=== PATIENT | female | born 1985 | race Caucasian/White ===

== ENCOUNTER → 2017-10-16 14:51 | Outpatient (CLI) | payer BC, SELFPAY ==
[2017-10-17 12:01] LABS: Strep Grp B PCR NEG for Grp B Strep
== END ==
PROVIDERS: Family Provider Specialist; PCP Specialist; Visit Provider Specialist
DX: Z34.83 Encounter for supervision of other normal pregnancy, third trimester (principal); Z3A.36 36 weeks gestation of pregnancy
CPT/HCPCS: 87653

== ENCOUNTER 2017-11-02 22:29 | Inpatient (IN) | payer BC, SELFPAY ==
[2017-11-03] MEDS: LACTATED RINGERS 1,000 ML 1000 ML IV (02:45)
[2017-11-03 03:29] LABS: Add Manual Diff / Slide Review NO; Basophils Percent Auto 0.5 % (0-2); Eosinophils Percent Auto 0.6 % (2-4); Hematocrit 37.4 % (36-46); Hemoglobin 12.8 g/dL (12.0-16.0); Lymphocytes Percent Auto 21.8 % (25-40); Mean Corpuscular HGB Conc 34.3 % (30-36); Mean Corpuscular Hemoglobin 32.6 PG (26-34); Mean Corpuscular Volume 95.2 fL (80-100); Monocytes Percent Auto 6.2 % (3-14); Neutrophils Absolute Auto 7900 /uL (3000-5900); Neutrophils Percent Auto 70.9 % (50-75); Platelet Count 201 X10^3/uL (150-400); Red Blood Cell Count 3.93 X10^6/uL (4.0-5.2); Red Cell Distribution Width 12.7 % (11.6-14.8); White Blood Cell Count 11.1 X10^3/uL (4.5-11.0)
[2017-11-03] MEDS: OXYTOCIN 10 UNIT/ML VIAL IM (03:30)
--- NOTE | 2017-11-03 03:41 | PM.OBHP.1 ---
OB HPI Date/Time Date of admission: 11/03/17 Date Patient Seen: 11/03/17 Time Patient Seen: 03:42 History of Present Illness Chief complaint: EVAL OF LABOR : 5 Para: 2 Estimated Date of Delivery: 11/10/17 Estimated Gestational Age (weeks): 38 Narrative: Mariola Lopez is a 32 year old female who arrived on Labor and delivery in active labor. History of Present care: good care Dating criteria: LMP confirmed by 1st trimester US Ultrasounds: normal mid trimester US Obstetrical complications: none Medical complications: none Preadmission Labs Blood type: A (+) positive -: Antibody screen: negative, GBS status: negative, HBsAG: negative, HIV: negative, HSV 1: negative, HSV 2: negative and RPR/VDLR: negative -: Chlamydia screen: not detected and Gonorrhea screen: not detected -: Rubella: immune and Varicella: immune PAP: Normal Quad screen: Normal 1 hr GTT: 110 Prior (ies) History: 08/29/2007 vaginal delivery male 7 lb 5 oz 03/15/2010 vaginal delivery male infant 7 lb 1 0z Evaluation Evaluation Baseline heart rate: 140 Variability: Moderate (11-25) monitor accelerations: Present monitor decelerations: Absent Contraction Frequency (minutes): 4 Uterine Contraction Intensity: Moderate Category of Tracing: I Cervical dilation (cm): 3 Cervical effacement (%): 75 station: -2 Laboratory results: Laboratory Tests 11/03/17 00:30 WBC 11.1 H RBC 3.93 L Hgb 12.8 Hct 37.4 MCV 95.2 MCH 32.6 MCHC 34.3 RDW 12.7 Plt Count 201 Neut % (Auto) 70.9 Lymph % (Auto) 21.8 L [place] % (Auto) 6.2 Eos % (Auto) 0.6 L Baso % (Auto) 0.5 Neut # (Auto) 7900 H [facility] Medical History Migraines (Chronic) Surgical History History of carpal tunnel surgery (Chronic) Meds Allergies Allergy/AdvReac Type Severity Reaction Status Date / Time vicodan Allergy Unknown Uncoded 07/23/17 12:46 Review of Systems Review of Systems All systems reviewed & are unremarkable except as noted in HPI and below Exam Vital Signs (past 8 hours): Blood pressure 117/70, pulse 105, temperature 97.7 Narrative Exam Narrative: Patient had does had precipitous delivery in bed when I arrived. Normal external genitalia with intact perineum. Objective Labs Result Diagrams: 11/03/17 00:30 Labs: Laboratory Results - last 24 hr 11/03/17 00:30 WBC 11.1 H RBC 3.93 L Hgb 12.8 Hct 37.4 MCV 95.2 MCH 32.6 MCHC 34.3 RDW 12.7 Plt Count 201 Neut % (Auto) 70.9 Lymph % (Auto) 21.8 L [place] % (Auto) 6.2 Eos % (Auto) 0.6 L Baso % (Auto) 0.5 Neut # (Auto) 7900 H Assessment and Plan (1) Vaginal delivery: Current visit: Yes Status: Acute Plan: Plan: Routine care after precipitous vaginal delivery.
--- NOTE | 2017-11-03 03:56 | PM.OBPRVD ---
Delivery date: 11/03/17 Intrapartal events: Precipitous Labor < 3 hours Delivery monitor: external FHT and external uterine Route of delivery: Laceration description: None Estimated blood loss (mL): 100 Anesthesia type: None Narrative: Patient arrived on Labor and delivery in early labor. heart tones were reassuring. She progressed rapidly and delivered in bed prior to my arrival. The nurse it just take in the cord bloods. The placenta delivered spontaneously, intact, 3 vessels. There were no cervical, vaginal, perineal tears. Viable male was delivered with Apgars of 8 and 9. Weight is pending. Both infant and mother doing well. Plan for aftercare: Routine care
[2017-11-03] MEDS: IBUPROFEN 600 MG TABLET PO ×3 (05:20→18:40)
[2017-11-03 06:07] VITALS: BP 117/70
[2017-11-03] MEDS: DOCUSATE 250 MG CAPSULE PO (08:10)
[2017-11-03] MEDS: PRENATAL VIT,CALC/IRON/FOLIC 1 TABLET 1 TAB PO (08:10)
[2017-11-03] MEDS: ACETAMINOPHEN 325 MG TABLET 650 MG PO (10:32)
[2017-11-04] MEDS: IBUPROFEN 600 MG TABLET PO ×2 (01:22→06:54)
[2017-11-04 06:17] LABS: Add Manual Diff / Slide Review NO; Basophils Percent Auto 0.4 % (0-2); Eosinophils Percent Auto 1.1 % (2-4); Hematocrit 33.9 % (36-46); Hemoglobin 11.8 g/dL (12.0-16.0); Mean Corpuscular HGB Conc 34.7 % (30-36); Mean Corpuscular Hemoglobin 32.9 PG (26-34); Monocytes Percent Auto 7.7 % (3-14); Neutrophils Absolute Auto 6900 /uL (3000-5900); Neutrophils Percent Auto 67.8 % (50-75); Platelet Count 190 X10^3/uL (150-400); Red Blood Cell Count 3.57 X10^6/uL (4.0-5.2); Red Cell Distribution Width 12.8 % (11.6-14.8); White Blood Cell Count 10.1 X10^3/uL (4.5-11.0)
[2017-11-04] MEDS: TET,DIPH,PERTUSS(ACELL),VAC/PF 0.5 ML SYRINGE IM (08:33)
[2017-11-04] MEDS: DOCUSATE 250 MG CAPSULE PO (08:33)
[2017-11-04] MEDS: PRENATAL VIT,CALC/IRON/FOLIC 1 TABLET 1 TAB PO (08:33)
--- NOTE | 2017-11-04 09:13 | PM.OBDS.1 ---
Discharge Providers Date of admission: 11/03/17 05:21 Primary care physician: Sheila Brown MD Consults: 11/03/17 05:21 Consult to Retail Support Specialist Routine Comment: Discharge provider: Sheila Brown MD Discharge Date: 11/04/17 Summary Date Patient Seen: 11/04/17 Time Patient Seen: 09:17 Peripartum Data Infant Delivery Method: Natural Vaginal Laceration description: None Procedures: Vaginal delivery complications: none 1: Gender: Male Disposition of : home Discharge Diagnosis (1) Vaginal delivery: Status: Acute Status at Discharge Functional status at discharge: independent ambulation Overall status at discharge: patient is progressing back to baseline Time Spent with Patient Total time spent providing and/or coordinating discharge services: Less than 30 minutes Objective Labs Result Diagrams: 11/04/17 05:38 Labs: Laboratory Results - last 24 hr 11/04/17 05:38 WBC 10.1 RBC 3.57 L Hgb 11.8 L Hct 33.9 L MCV 95.0 MCH 32.9 MCHC 34.7 RDW 12.8 Plt Count 190 Neut % (Auto) 67.8 Lymph % (Auto) 23.0 L [place] % (Auto) 7.7 Eos % (Auto) 1.1 L Baso % (Auto) 0.4 Neut # (Auto) 6900 H Discharge Plan Discharge Plan Patient Disposition: Home, Self-Care Discharge Med Rec/Prescriptions Prescriptions: No Action PNV #[id number] [id number] 1 tab PO DAILY RF: 0 cranberry 1 tab PO DAILY RF: 0 Provider Discharge Instructions Diet: Diet as Tolerated Activity: as tolerated Wound Care Report to your healthcare provider any signs of infection, such as:: chills, fever, night sweats and unusual drainage Discharge Data Primary Care Provider: Sheila Brown Attending Provider: Sheila Brown Admit Date/Time: 11/03/17 05:21
[2017-11-04 09:19] VITALS: BP 105/68; PULSE 70; RESP 16; TEMP 36.7
[2017-11-04 09:28] VITALS: BP 105/68; PULSE 70; RESP 16; TEMP 36.7
== END 2017-11-04 11:10 | disposition home or self-care (01) | DRG 775 ==
PROVIDERS: Admitting Provider Specialist; Family Provider Specialist; PCP Specialist; Visit Provider Specialist
DX: O80 Encounter for full-term uncomplicated delivery (principal); Z37.0 Single live birth; Z3A.38 38 weeks gestation of pregnancy
CPT/HCPCS: 36415; 59050; 59400; 85025; 86850; 86900; 86901; G0378; 90715; G0379; J2590

== ENCOUNTER 2019-08-09 16:34 | Emergency (ER) | payer BC, SELFPAY ==
[2019-08-09 16:45] VITALS: BP 132/77; PULSE 73; RESP 20; TEMP 36.9; O2SAT 97
--- NOTE | 2019-08-09 16:56 | DI.CT.S_ITS ---
PROCEDURE: CT HEAD/BRAIN WO CON INDICATIONS: atruamatic dizzyness, head pressure, lightheaded. TECHNIQUE: Noncontrast 4.5 mm thick angled axial sections acquired from the foramen magnum to the vertex, with coronal and sagittal reformats. For radiation dose reduction, the following was used: automated exposure control, adjustment of mA and/or kV according to patient size. COMPARISON: None. FINDINGS: Image quality: Diagnostic. CSF spaces: Basal cisterns are patent. No extra-axial fluid collections. Ventricles are normal in size and shape. Brain: No midline shift. No intracranial masses or hemorrhage. Meng-white matter interface is normal. Skull and face: Calvarium and visualized facial bones are intact, without suspicious lesions. Sinuses: Visualized sinuses and mastoids are clear. IMPRESSION: Negative head CT. No acute intracranial hemorrhage. Dictated by: Fabián Roberson M.D. on 08/09/2019 at 16:14 Approved by: Fabián Roberson M.D. on 08/09/2019 at 16:14
[2019-08-09 16:58] LABS: Add Manual Diff / Slide Review NO; Basophils Absolute Auto 100 /uL (0-100); Basophils Percent Auto 1.1 % (0-2); Eosinophils Absolute Auto 200 /uL (0-450); Eosinophils Percent Auto 1.9 % (2-4); Hematocrit 39.4 % (36-46); Hemoglobin 13.6 g/dL (12.0-16.0); Lymphocytes Absolute Auto 2500 /uL (1100-4500); Lymphocytes Percent Auto 30.4 % (25-40); Mean Corpuscular HGB Conc 34.7 % (30-36); Mean Corpuscular Volume 92.3 fL (80-100); Monocytes Absolute Auto 600 /uL (0-900); Neutrophils Absolute Auto 4900 /uL (1500-7000); Neutrophils Percent Auto 59.6 % (50-75); Platelet Count 262 X10^3/uL (150-400); Red Blood Cell Count 4.26 X10^6/uL (4.0-5.2); Red Cell Distribution Width 12.5 % (11.6-14.8); White Blood Cell Count 8.3 X10^3/uL (4.5-11.0)
[2019-08-09 17:06] LABS: Lactate (Lactic Acid) 1.2 mmol/L (0.7-2.1)
[2019-08-09 17:07] LABS: Alanine Aminotransferase 19 IU/L (<35); Albumin 4.4 g/dL (3.5-5.0); Albumin Globulin Ratio 1.5 (1.0-2.8); Alkaline Phosphatase 37 U/L (38-126); Aspartate Aminotransferase 30 IU/L (14-36); BUN Creatinine Ratio 22.4 (6-22); Bilirubin Total 0.3 mg/dL (0.2-1.3); Blood Urea Nitrogen 11 mg/dL (7-17); Calcium 9.2 mg/dL (8.4-10.2); Carbon Dioxide 31 mmol/L (22-32); Chloride 104 mmol/L (98-107); Estimated Glomerular Filt Rate > 60.0 mL/min (>60); Globulin 2.9 g/dL (1.7-4.1); Glucose 98 mg/dL (70-100); HEMOLYSIS 45 (0-50); Potassium 3.8 mmol/L (3.4-5.1); Sodium 142 mmol/L (137-145); Total Protein 7.3 g/dL (6.3-8.2)
[2019-08-09 17:18] LABS: Troponin I < 0.012 ng/mL (0.01-0.034)
[2019-08-09 18:00] VITALS: BP 116/74; PULSE 72; RESP 17; O2SAT 98
--- NOTE | 2019-08-09 18:12 | ED_ITS ---
HPI - Dizziness General Chief Complaint: Dizziness Stated Complaint: nausea / lightheaded/ blurry vision Time Seen by Provider: 08/09/19 18:10 Source: patient, family and EMS Mode of arrival: EMS Limitations: no limitations History of Present Illness HPI Narrative: 33F nonsmoker with noncontributory medical history presents by [facility] for evaluation of some dizziness and lightheadedness over the course of the day. Patient states that she went to bed feeling fine and over the course of the day started feeling generally unwell. She states that she became dizzy upon standing and improved with rest. She did have some palpitations earlier today but denies any ongoing chest pain or shortness of breath. She has not recently had any dietary or medication change. SHe has some vague anterior head pain. She denies any nausea, vomiting or diarrhea. She denies any dysuria, frequency or urgency. She denies any recent travel or exposure in persons known to have COVID-19. Her last menstrual period was about a week ago and no heavier than normal. She was evaluated by medics on scene and was too dizzy to complete orthostatics MD complaint: dizziness Onset (ago): hour(s) Timing: unsure Description: lightheadedness History of similar episodes: No History of trauma: No Severity: moderate Relieving factors: rest Exacerbating factors: position Related Data Home Medications Medication Instructions Recorded Confirmed PNV #[id number] acid-[id number] 1 tab PO DAILY 11/03/17 11/03/17 cranberry 1 tab PO DAILY 11/03/17 11/03/17 Allergies Allergy/AdvReac Type Severity Reaction Status Date / Time hydrocodone [From Vicodin] Allergy Intermediate Swelling Verified 08/09/19 16:47 of Lip/Tongue/Throat peanut Allergy Intermediate Swelling Verified 11/03/17 07:49 of Lip/Tongue/Throat Review of Systems Constitutional Constitutional: Denies chills, Reports fatigue, Denies fever(s), Denies frequent falls, Denies lethargy and Reports weakness Eyes Eyes: Denies change in vision, Denies eye discharge, Denies irritation and Denies loss of vision ENT Ears, Nose, Mouth, and Throat: Denies change in voice, Denies dizziness, Denies neck pain, Denies sore throat and Denies throat swelling Cardiovascular Cardiovascular: Denies chest pain, Reports rapid heart rate, Denies irregular heart rhythm, Reports lightheadedness, Denies palpitations, Denies dyspnea, Denies dyspnea on exertion and Denies orthopnea Respiratory Respiratory: Denies cough, Denies dyspnea, Denies dyspnea on exertion and Denies wheezing Gastrointestinal Gastrointestinal: Denies abdominal pain, Denies change in bowel habits, Denies diarrhea, Denies nausea and Denies vomiting Genitourinary Genitourinary: Denies hematuria, Denies flank pain, Denies urinary incontinence and Denies urinary urgency Musculoskeletal Musculoskeletal: Denies back pain, Denies muscle weakness, Denies neck pain, Denies numbness and Denies tingling Integumentary/Breasts Skin/Breast: Denies pruritus, Denies erythema, Denies rash and Denies wounds Neurologic Neurologic: Denies behavioral changes, Denies confusion, Denies dizziness, Denies frequent falls, Denies loss of vision, Denies numbness, Denies tingling and Reports weakness Psychiatric Psychiatric: Denies anxiety, Denies behavioral changes, Denies confusion, Denies depression, Denies homicidal ideation and Denies suicidal ideation Endocrine Endocrine: Reports fatigue, Denies flushing and Denies palpitations Hematologic/Lymphatic Hematologic/Lymphatic: Denies easy bruising Allergic/Immunologic Allergic/Immunologic: Denies urticaria, Denies throat swelling and Denies wheezing Patient History Medical History Migraines (Chronic) Surgical History History of carpal tunnel surgery (Chronic) Social History Smoking Status: Never smoker Smoking Status: Never smoker alcohol intake frequency: 0-2 drinks per day Substance Use Type: does not use Exam Narrative Exam Narrative: GENERAL: [33] year old patient appears stated age. Well- nourished, well-developed patient, in mild distress. HEAD: Atraumatic. Normocephalic. EYES: Pupils equal round and reactive. Extraocular motions intact. No scleral icterus. No injection or drainage. ENT: Nose without bleeding, purulent drainage. Throat without erythema, tonsillar hypertrophy or exudate. Airway patent. NECK: Trachea midline. Non tender CARDIOVASCULAR: Regular rate and rhythm without murmurs, gallops, or rubs. RESPIRATORY: Clear to auscultation. Breath sounds equal bilaterally. No wheezes, rales, or rhonchi. GASTROINTESTINAL: Abdomen soft, non-tender, nondistended. EXTREMITIES: No edema or joint tenderness. BACK: Nontender without deformity or crepitance. No flank tenderness. NEURO: AOx3. SKIN: No rash or erythema of visible areas NIH Stroke Scale 1a. LOC: Patient is alert and keenly responsive (0) 1b. LOC Questions: Patient answers both LOC questions accurately (0) 1c. LOC Commands: Patient performs both tasks correctly (0) 2. Best Gaze: Normal (0) 3. Visual: No visual loss (0) 4. Facial palsy: Normal symmetrical movements (0) 5. Motor arm: No drift (0) 6. Motor leg: No drift (0) 7. Limb ataxia: Absent (0) 8. Sensory: Normal (0) 9. Best language: No aphasia; normal (0) 10. Dysarthria: Normal (0) 11. Extinction and inattention: No abnormality (0) NIHSS: 0 Initial Vital Signs Initial Vital Signs: Vital Signs Temperature 98.4 F 08/09/19 16:45 Pulse Rate 73 08/09/19 16:45 Respiratory Rate 20 08/09/19 16:45 Blood Pressure 132/77 08/09/19 16:45 Pulse Oximetry 97 08/09/19 16:45 Course Course Course Narrative: patient feeling much better after the above stated therapies Orders Ordered: Discontinued Medications Sodium Chloride (Normal Saline 0.9%) 1,000 mls @ 1,000 mls/hr IV BOLUS ONE Stop: 08/09/19 17:55 Last Infusion: 08/09/19 19:58 Dose: 0 mls/hr Documented by: Admin: 08/09/19 18:38 Dose: 1,000 mls/hr Documented by: RYAN Meclizine HCl (Antivert) 25 mg PO NOW ONE Stop: 08/09/19 18:13 Last Admin: 08/09/19 18:35 Dose: 25 mg Documented by: RYAN Vital Signs Vital signs: Vital Signs - 8 hr 08/09/19 16:45 Temperature 98.4 F Pulse Rate 73 Respiratory Rate 20 Blood Pressure 132/77 Pulse Oximetry 97 MDM - Dizziness Lab Data Result diagrams: 08/09/19 16:20 08/09/19 16:20 Labs: Lab Results 08/09/19 08/09/19 08/09/19 Range/Units 16:20 16:20 16:20 WBC 8.3 (4.5-11.0) X10^3/uL RBC 4.26 (4.0-5.2) X10^6/uL Hgb 13.6 (12.0-16.0) g/dL Hct 39.4 (36-46) % MCV 92.3 (80-100) fL MCH 32.0 (26-34) PG MCHC 34.7 (30-36) % RDW 12.5 (11.6-14.8) % Plt Count 262 (150-400) X10^3/uL Neut % (Auto) 59.6 (50-75) % Lymph % (Auto) 30.4 (25-40) % [place] % (Auto) 7.0 (3-14) % Eos % (Auto) 1.9 L (2-4) % Baso % (Auto) 1.1 (0-2) % Neut # (Auto) 4900 (6684-5112) /uL Lymph # (Auto) 2500 (7562-6346) /uL [place] # (Auto) 600 (0-900) /uL Eos # (Auto) 200 (0-450) /uL Baso # (Auto) 100 (0-100) /uL Sodium 142 (137-145) mmol/L Potassium 3.8 (3.4-5.1) mmol/L Chloride 104 (98-107) mmol/L Carbon Dioxide 31 (22-32) mmol/L BUN 11 (7-17) mg/dL Creatinine 0.49 L (0.52-1.04) mg/dL Estimated GFR > 60.0 (>60) mL/min BUN/Creatinine Ratio 22.4 H (6-22) Glucose 98 (70-100) mg/dL Lactate 1.2 (0.7-2.1) mmol/L Calcium 9.2 (8.4-10.2) mg/dL Total Bilirubin 0.3 (0.2-1.3) mg/dL AST 30 (14-36) IU/L ALT 19 (<35) IU/L Alkaline Phosphatase 37 L (38-126) U/L Troponin I < 0.012 (0.01-0.034) ng/mL Total Protein 7.3 (6.3-8.2) g/dL Albumin 4.4 (3.5-5.0) g/dL Globulin 2.9 (1.7-4.1) g/dL Albumin/Globulin Ratio 1.5 (1.0-2.8) TSH (0.47-4.68) uIU/mL Free T4 (0.78-2.19) ng/dL Urine Color Urine Appearance Urine pH (4.5-8.0) Ur Specific [place] (1.000-1.035) Urine Protein (Negative) Urine Glucose (UA) (Negative) g/dL Urine Ketones (NEGATIVE) Urine Occult Blood (Negative) Urine Nitrate (Negative) Urine Bilirubin (NEGATIVE) Urine Urobilinogen (0.2) E.U./dL Ur Leukocyte Esterase (NEGATIVE) U Opiates 300ng/mL cut (Negative) Ur Oxycodone Screen (Negative) Urine Methadone Screen (Negative) Ur Barbiturates Screen (Negative) U Tricyclic Antidepress (Negative) Ur Phencyclidine Scrn (Negative) Ur Amphetamines Screen (Negative) U Methamphetamines Scrn (Negative) Ur MDMA Scrn (Ecstasy) (Negative) U Benzodiazepines Scrn (Negative) Urine Cocaine Screen (Negative) U Marijuana (THC) Screen (Negative) 08/09/19 08/09/19 08/09/19 Range/Units 16:22 16:30 17:13 WBC (4.5-11.0) X10^3/uL RBC (4.0-5.2) X10^6/uL Hgb (12.0-16.0) g/dL Hct (36-46) % MCV (80-100) fL MCH (26-34) PG MCHC (30-36) % RDW (11.6-14.8) % Plt Count (150-400) X10^3/uL Neut % (Auto) (50-75) % Lymph % (Auto) (25-40) % [place] % (Auto) (3-14) % Eos % (Auto) (2-4) % Baso % (Auto) (0-2) % Neut # (Auto) (9896-6566) /uL Lymph # (Auto) (3056-8549) /uL [place] # (Auto) (0-900) /uL Eos # (Auto) (0-450) /uL Baso # (Auto) (0-100) /uL Sodium (137-145) mmol/L Potassium (3.4-5.1) mmol/L Chloride (98-107) mmol/L Carbon Dioxide (22-32) mmol/L BUN (7-17) mg/dL Creatinine (0.52-1.04) mg/dL Estimated GFR (>60) mL/min BUN/Creatinine Ratio (6-22) Glucose (70-100) mg/dL Lactate (0.7-2.1) mmol/L Calcium (8.4-10.2) mg/dL Total Bilirubin (0.2-1.3) mg/dL AST (14-36) IU/L ALT (<35) IU/L Alkaline Phosphatase (38-126) U/L Troponin I (0.01-0.034) ng/mL Total Protein (6.3-8.2) g/dL Albumin (3.5-5.0) g/dL Globulin (1.7-4.1) g/dL Albumin/Globulin Ratio (1.0-2.8) TSH 1.36 (0.47-4.68) uIU/mL Free T4 0.82 (0.78-2.19) ng/dL Urine Color Yellow Urine Appearance Clear Urine pH 8.0 (4.5-8.0) Ur Specific [place] 1.015 (1.000-1.035) Urine Protein Negative (Negative) Urine Glucose (UA) Negative (Negative) g/dL Urine Ketones Negative (NEGATIVE) Urine Occult Blood Negative (Negative) Urine Nitrate Negative (Negative) Urine Bilirubin Negative (NEGATIVE) Urine Urobilinogen 0.2 (0.2) E.U./dL Ur Leukocyte Esterase Negative (NEGATIVE) U Opiates 300ng/mL cut Negative (Negative) Ur Oxycodone Screen Negative (Negative) Urine Methadone Screen Negative (Negative) Ur Barbiturates Screen Negative (Negative) U Tricyclic Antidepress Negative (Negative) Ur Phencyclidine Scrn Negative (Negative) Ur Amphetamines Screen Negative (Negative) U Methamphetamines Scrn Negative (Negative) Ur MDMA Scrn (Ecstasy) Negative (Negative) U Benzodiazepines Scrn Negative (Negative) Urine Cocaine Screen Negative (Negative) U Marijuana (THC) Screen Negative (Negative) Point of Care Testing Test Results Negative Urine Dip Bedside Urine Glucose Negative Bedside Urine Bilirubin - Negative Bedside Urine Ketone - Negative Urine Specific [place] 1.010 Bedside Urine Occult Blood - Negative Bedside Urine pH 8.5 Bedside Urine Protein - Negative Bedside Urine Urobilinogen - Negative Bedside Urine Nitrite - Negative Bedside Urine Leukocytes - Negative Esterase ECG Data Attestation: I personally reviewed and interpreted this ECG as follows: Prior ECG tracings: not available for review Interpretation: EKG is normal sinus rhythm rate [ 71] and free of any signs of ischemia or ectopy. No ST segmental elevation or depression. No T wave inversions MDM Narrative Medical decision making narrative: Multiple etiologies for patient's symptoms considered including: [arrhythmia vs. dehydration vs. anemia vs. SAH vs. other] Patient's symptoms improved or duration of stay with above-stated therapies. Findings and discharge diagnosis discussed with patient/family followed by verbalization of understanding Return precautions discussed with patient/family whom verbalize understanding. Discharge Plan Departure Patient Disposition: Home Clinical Impression: Dizziness Discharge Date/Time: 08/09/19 20:38 Instructions: DI for Dizziness-Nonvertigo Activity Restrictions/Additional Instructions: *You have been diagnosed with [dizziness. Head CT was normal and labs are very reassuring] *What to do: *Take medications as directed *Follow up with your primary care provider in 2-3 days, call for an appointment. Let them know you were seen in the Emergency Department and that we ask that you be seen in follow up *Return to ER if you should have any new, worsening or concerning symptoms Prescriptions: No Action PNV #[id number] acid-omega3 1 tab PO DAILY RF: 0 cranberry 1 tab PO DAILY RF: 0 Referrals: Sheila Brown MD [Primary Care Provider] -
[2019-08-09 18:30] VITALS: BP 121/74; PULSE 70; RESP 14; O2SAT 99
[2019-08-09] MEDS: MECLIZINE HCL 12.5 MG TABLET 25 MG PO (18:35)
[2019-08-09] MEDS: SODIUM CHLORIDE 0.9% 1,000 ML 1000 ML IV (18:38)
[2019-08-09 19:11] LABS: Appearance Urine UA CLEAR; Bilirubin Urine UA NEGATIVE (NEGATIVE); Color Urine UA YELLOW; Glucose Urine UA NEGATIVE (Negative); Ketones Urine UA NEGATIVE (NEGATIVE); Leukocyte Esterase Urine UA NEGATIVE (NEGATIVE); Nitrite Urine UA NEGATIVE (Negative); Occult Blood Urine UA NEGATIVE (Negative); Protein Urine UA NEGATIVE (Negative); Specific Gravity Urine UA 1.015 (1.000-1.035); Urobilinogen Urine UA 0.2 E.U./dL (0.2)
[2019-08-09 19:13] LABS: UR Morphine/Opiate cutoff 300 Negative (Negative); Ur Creatinine Normal (Normal); Ur Specific Gravity Normal (Normal); Urine Amphetamines Negative (Negative); Urine Cocaine Negative (Negative); Urine Methamphetamines Negative (Negative); Urine pH Normal (Normal)
[2019-08-09 19:14] LABS: Urine Barbiturates Negative (Negative); Urine Benzodiazepines Negative (Negative); Urine MDMA Negative (Negative); Urine Methadone Negative (Negative); Urine Oxycodone Negative (Negative); Urine Phencyclidine Negative (Negative); Urine Tetrahydrocannabinol Negative (Negative); Urine Tricyclic Antidepressant Negative (Negative)
[2019-08-09 19:56] VITALS: BP 113/70; BP 113/72; BP 120/72; PULSE 67; PULSE 72; PULSE 76
[2019-08-09 19:59] LABS: Free T4, Direct Thyroxine 0.82 ng/dL (0.78-2.19)
[2019-08-09 20:13] LABS: Thyroid Stimulating Hormone 1.36 uIU/mL (0.47-4.68)
[2019-08-09 20:35] VITALS: BP 118/73; PULSE 68; RESP 16; TEMP 36.8; O2SAT 98
== END 2019-08-09 20:38 | disposition home or self-care (01) ==
PROVIDERS: Emergency Medicine; Emergency Provider Emergency Medicine; Family Provider Specialist; PCP Specialist
DX: R42 Dizziness and giddiness (principal)
CPT/HCPCS: 70450; 80053; 80305; 81003; 81025; 83605; 84439; 84443; 84484; 85025; 93005; 96360; 99284

== ENCOUNTER → 2023-06-02 13:01 | Outpatient (CLI) | payer BC, SELFPAY ==
--- NOTE | 2023-06-02 13:07 | DI.MG.S_ITS ---
BILATERAL DIGITAL SCREENING MAMMOGRAM 3D/2D WITH CAD: 06/02/2023 CLINICAL: Routine screening. Family history of breast cancer. Baseline exam. No prior exams were available for comparison. Both breasts are heterogeneously dense, which may obscure small masses (category c / 51-75% glandular tissue). Current study was also evaluated with a Computer Aided Detection (CAD) system. There is an asymmetry in the left breast anterior depth central to the nipple seen on the craniocaudal view only. No other significant masses, calcifications, or other findings are seen in either breast. IMPRESSION: INCOMPLETE: NEEDS ADDITIONAL IMAGING EVALUATION The asymmetry in the left breast is indeterminate. Additional views with possible ultrasound are recommended. Based on the Tyrer Cuzick model (a risk assessment model) the patient's lifetime risk is 19.6% and her 10 year risk is 2.3%. According to the ACR, ACS, and NCCN guidelines, an annual breast MRI exam along with mammogram is recommended if the patient's lifetime risk is 20% or greater. This exam was interpreted at Station ID: [id number]. NOTE: For mammograms, a report in lay terms will be sent to the patient. Approximately 15% of breast malignancies will not be visualized mammographically. In the management of a palpable breast mass, a negative mammogram must not discourage biopsy of a clinically suspicious lesion. Electronically Signed By: Yasmani Reid M.D. lc/:06/02/2023 16:40:18 letter sent: Additional Imaging Needed ACR BI-RADS Category 0: Incomplete [id number]
== END ==
PROVIDERS: Family Provider Specialist; PCP Family Medicine; Referring Provider Family Medicine; Visit Provider Family Medicine
DX: Z12.31 Encounter for screening mammogram for malignant neoplasm of breast (principal); Z80.3 Family history of malignant neoplasm of breast; R92.333 Mammographic heterogeneous density, bilateral breasts
CPT/HCPCS: 77063; 77067

== ENCOUNTER → 2023-06-26 13:29 | Outpatient (CLI) | payer BC, SELFPAY ==
--- NOTE | 2023-06-26 13:31 | DI.MG.S_ITS ---
UNILATERAL LEFT DIGITAL DIAGNOSTIC MAMMOGRAM 3D/2D WITH ADDITIONAL VIEWS: 06/26/2023 CLINICAL: Additional evaluation requested from prior study. Comparison is made to exam dated: 06/02/2023 mammogram - [facility]. The left breast is heterogeneously dense, which may obscure small masses (category c / 51-75% glandular tissue). The finding seen on recent screening mammogram did not persist with additional imaging and is consistent with superimposition of normal breast tissue. No significant masses, calcifications, or other findings are seen in the breast. IMPRESSION: NEGATIVE Superimposition of normal breast tissue. No mammographic evidence of malignancy. A 1 year screening mammogram is recommended. Findings and recommendations were conveyed to the patient during today's evaluation. Based on the Tyrer Cuzick model (a risk assessment model) the patient's lifetime risk is 19.6% and her 10 year risk is 2.3%. According to the ACR, ACS, and NCCN guidelines, an annual breast MRI exam along with mammogram is recommended if the patient's lifetime risk is 20% or greater. This exam was interpreted at Station ID: [id number]. NOTE: For mammograms, a report in lay terms will be sent to the patient. Approximately 15% of breast malignancies will not be visualized mammographically. In the management of a palpable breast mass, a negative mammogram must not discourage biopsy of a clinically suspicious lesion. Electronically Signed By: Mary Beth Yost M.D., PH.D eb/:06/26/2023 14:06:14 letter sent: Normal Exam ACR BI-RADS Category 1: Negative [id number]
== END ==
LOC: MAMMO 13:30
PROVIDERS: Family Provider Specialist; PCP Family Medicine; Referring Provider Family Medicine; Visit Provider Family Medicine
DX: N64.89 Other specified disorders of breast (principal); R92.332 Mammographic heterogeneous density, left breast
CPT/HCPCS: 77065; G0279

== ENCOUNTER 2024-01-14 20:13 | Emergency (ER) | payer BC, SELFPAY ==
[2024-01-14] VITALS (8 sets, daily range): BP systolic 110–156; BP diastolic 55–77; PULSE 81–98; RESP 14; TEMP 37.2; O2SAT 98–100; BMI 24.7
[2024-01-14 20:36] LABS: Add Manual Diff / Slide Review NO; Basophils Absolute Auto 100 /uL (0-100); Eosinophils Absolute Auto 100 /uL (0-450); Hematocrit 43.5 % (36-46); Hemoglobin 14.8 g/dL (12.0-16.0); Lymphocytes Absolute Auto 1000 /uL (1100-4500); Lymphocytes Percent Auto 16.9 % (25-40); Mean Corpuscular Hemoglobin 31.7 PG (26-34); Mean Corpuscular Volume 93.2 fL (80-100); Monocytes Absolute Auto 400 /uL (0-900); Monocytes Percent Auto 5.8 % (3-14); Neutrophils Absolute Auto 4600 /uL (1500-7000); Neutrophils Percent Auto 75.3 % (50-75); Platelet Count 275 X10^3/uL (150-400); Red Blood Cell Count 4.66 X10^6/uL (4.0-5.2); Red Cell Distribution Width 12.4 % (11.6-14.8); White Blood Cell Count 6.1 X10^3/uL (4.5-11.0)
--- NOTE | 2024-01-14 20:41 | ED.ABDPAIN ---
HPI - Abdominal Pain General Chief Complaint: Abdominal Pain Stated Complaint: sent by PCP, appendix issues Time Seen by Provider: 01/14/24 20:14 Source: patient Mode of arrival: Ambulatory History of Present Illness HPI narrative: 38yoF presents by private vehicle from home for RLQ pain x1 day with nausea. Patient states last night she went to bed in her usual state of health, this morning she felt bloated, nauseous, and with discomfort in her RLQ. Patient states that symptoms persisted throughout the day[place] evaluate for possible appendicitis. Patient denies major medical history, has never had intra-abdominal surgery. Related Data Home Medications Medication Instructions Recorded Confirmed PNV #[id number] acid-[id number] 1 tab PO DAILY 11/03/17 11/03/17 cranberry 1 tab PO DAILY 11/03/17 11/03/17 Previous Rx's Medication Instructions Recorded ondansetron 4 mg disintegrating 4 mg PO Q8H PRN nausea and 01/14/24 tablet vomiting #30 tabs Allergies Allergy/AdvReac Type Severity Reaction Status Date / Time hydrocodone [From Vicodin] Allergy Intermediate Swelling Verified 01/14/24 20:24 of Lip/Tongue/Throat peanut Allergy Intermediate Swelling Verified 01/14/24 20:24 of Lip/Tongue/Throat Patient History Medical History Migraines Surgical History History of carpal tunnel surgery Social History Smoking Status: Never smoker Smoking Status: Never smoker alcohol intake frequency: 0-2 drinks per day Substance Use Type: does not use Exam Initial Vital Signs Initial Vital Signs: Vital Signs Temperature 98.9 F 01/14/24 20:14 Pulse Rate 95 H 01/14/24 20:14 Respiratory Rate 14 01/14/24 20:14 Blood Pressure 156/77 H 01/14/24 20:14 Pulse Oximetry 100 01/14/24 20:14 Oxygen Delivery Method Room Air 01/14/24 20:14 Const: Awake, alert, no acute distress, nontoxic appearing Cardiac: regular rate, regular rhythm RESP: unlabored, clear bilaterally, no wheezing GI: Soft, right lower quadrant tenderness to deep palpation without rebound or guarding Skin: Warm, Dry, intact, no rashes Neuro: AO x3, CN II-XII grossly intact, moves all extremities Course Orders Ordered: ED Orders 01/14/24 20:16 Urine Microscopic Stat 01/14/24 20:25 CBC Auto Diff [Complete Blood Count AUTO DIFF] Stat CMP [Comprehensive Metabolic Panel] Stat Lactate (Lactic Acid) Stat 01/14/24 20:41 CT abdomen pelvis w con Stat Discontinued Medications Sodium Chloride (Normal Saline 0.9%) 1,000 mls @ 1,000 mls/hr IV BOLUS ONE Stop: 01/14/24 21:40 Last Infusion: 01/14/24 22:06 Dose: Infused Documented By: Admin: 01/14/24 20:52 Dose: 1,000 mls/hr Documented By: Ondansetron HCl (Ondansetron 4 Mg/2 Ml Inj) 4 mg IV NOW ONE Stop: 01/14/24 20:42 Last Admin: 01/14/24 20:52 Dose: 4 mg Documented By: Vital Signs Vital signs: Vital Signs - 8 hr 01/14/24 20:14 01/14/24 20:56 01/14/24 20:57 Temperature 98.9 F Pulse Rate 95 H 86 86 Respiratory Rate 14 Blood Pressure 156/77 H Pulse Oximetry 100 99 98 Oxygen Delivery Method Room Air 01/14/24 20:57 01/14/24 21:06 01/14/24 21:07 Temperature Pulse Rate 98 H 96 H Respiratory Rate Blood Pressure 110/69 Pulse Oximetry 98 100 Oxygen Delivery Method 01/14/24 21:07 01/14/24 21:30 01/14/24 21:30 Temperature Pulse Rate 91 H Respiratory Rate Blood Pressure 138/77 116/58 L Pulse Oximetry 99 Oxygen Delivery Method 01/14/24 22:00 01/14/24 22:00 01/14/24 22:30 Temperature Pulse Rate 84 81 Respiratory Rate Blood Pressure 114/58 L Pulse Oximetry 98 98 Oxygen Delivery Method Room Air 01/14/24 22:30 Temperature Pulse Rate Respiratory Rate Blood Pressure 112/55 L Pulse Oximetry Oxygen Delivery Method MDM - Abdominal Pain Differential Diagnosis Differential diagnosis: Likely abdominal pain, acute appendicitis and calculus of kidney Lab Data 01/14/24 20:25 10/02/24 20:25 Labs: Lab Results 01/14/24 01/14/24 Range/Units 20:16 20:25 WBC 6.1 (4.5-11.0) X10^3/uL RBC 4.66 (4.0-5.2) X10^6/uL Hgb 14.8 (12.0-16.0) g/dL Hct 43.5 (36-46) % MCV 93.2 (80-100) fL MCH 31.7 (26-34) PG MCHC 34.0 (30-36) % RDW 12.4 (11.6-14.8) % Plt Count 275 (150-400) X10^3/uL Neut % (Auto) 75.3 H (50-75) % Lymph % (Auto) 16.9 L (25-40) % [place] % (Auto) 5.8 (3-14) % Eos % (Auto) 1.0 L (2-4) % Baso % (Auto) 1.0 (0-2) % Neut # (Auto) 4600 (3597-9463) /uL Lymph # (Auto) 1000 L (2167-7458) /uL [place] # (Auto) 400 (0-900) /uL Eos # (Auto) 100 (0-450) /uL Baso # (Auto) 100 (0-100) /uL Sodium 137 (137-145) mmol/L Potassium 3.6 (3.4-5.1) mmol/L Chloride 100 (98-107) mmol/L Carbon Dioxide 29 (22-32) mmol/L BUN 8 (7-17) mg/dL Creatinine 0.67 (0.52-1.04) mg/dL Estimated GFR > 60 (>60) mL/min BUN/Creatinine Ratio 11.9 (6-22) Glucose 99 (70-100) mg/dL Lactate 0.7 (0.7-2.1) mmol/L Calcium 9.1 (8.4-10.2) mg/dL Total Bilirubin 0.7 (0.2-1.3) mg/dL AST 57 H (14-36) IU/L ALT 59 H (<35) IU/L Alkaline Phosphatase 73 (38-126) U/L Total Protein 7.8 (6.3-8.2) g/dL Albumin 4.7 (3.5-5.0) g/dL Globulin 3.1 (1.7-4.1) g/dL Albumin/Globulin Ratio 1.5 (1.0-2.8) Urine RBC 0-1/hpf (0-5/HPF) Urine WBC 0-1/hpf (0-5/HPF) Ur Squamous Epith Cells 1-5 /hpf (0-5/HPF) Urine Bacteria Few (2-10) H (None) Ur Culture Indicated? Cult not indicated Vol Urine Centrifuged 10ml (spun) Point of care testing: Point of Care Testing Test Results Negative Urine Dip Bedside Urine Glucose Negative Bedside Urine Bilirubin - Negative Bedside Urine Ketone + 15 Urine Specific [place] 1.015 Bedside Urine Occult Blood +++ Bedside Urine pH 6 Bedside Urine Protein - Negative Bedside Urine Urobilinogen - Negative Bedside Urine Nitrite - Negative Bedside Urine Leukocytes - Negative Esterase Imaging Data CT scan - abdomen/pelvis: Radiologist's Impression: PROCEDURE: CT ABDOMEN PELVIS W CON INDICATIONS: RLQ PAIN, N/V TECHNIQUE: After the administration of intravenous contrast, axial sections acquired from the lung bases to the pubic symphysis. Coronal and sagittal reformats were performed. For radiation dose reduction, the following was used: automated exposure control, adjustment of mA and/or kV according to patient size. COMPARISON: None. FINDINGS: Image quality: Diagnostic. Patient motion is noted during the exam. Lower Chest: No significant findings. ABDOMEN: Liver: No solid mass. Gallbladder: Limited evaluation of gallbladder. No definite calcified gallstone is seen. No significant gallbladder wall thickening. Biliary ducts: No biliary dilation. Pancreas: No ductal dilation. Spleen: Size is within normal limits. Adrenal Glands: No adrenal nodules. Kidneys and Ureters: No hydronephrosis. No solid mass. No complex renal cystic lesion which requires follow up. Stomach and Bowel: Normal colonic caliber, without significant wall thickening. Possible normal appearing appendix is seen in right lower quadrant abdomen. No focal area of wall thickening or fat stranding is seen in the region of cecum. Peritoneum: No abnormal intraperitoneal fluid. No free air. Ventral Wall: No significant ventral hernia. Abdominal Nodes: No retroperitoneal or mesenteric adenopathy by size criteria. Vessels: Aorta and inferior vena cava are normal in size. PELVIS: Pelvic Organs: Unremarkable. Bladder: No bladder wall thickening, accounting for underdistention. Pelvic Nodes: No enlarged lymph nodes. Miscellaneous: No inguinal hernias are seen. Bones: No aggressive osseous abnormality. IMPRESSION: 1. Slightly degraded study due to significant patient motion. 2. No CT evidence of acute appendicitis. No bowel obstruction or gross abnormal bowel wall thickening. No free fluid or free air. 3. Mildly distended gallbladder without CT evidence of cholelithiasis or acute cholecystitis. Dictated by: Neftali Sethi M.D. on 01/14/2024 at 21:38 Approved by: Neftali Sethi M.D. on 01/14/2024 at 21:41 [facility] Narrative Medical decision making narrative: Well-appearing patient with 1 day of nausea and some right lower quadrant discomfort. On arrival to the emergency department patient states that her pain has somewhat improved and is very mild. Patient declined pain medications. Laboratory work, CT imaging ordered. Laboratory work reviewed, WBC count 6.1, hemoglobin 14.8, platelet count 275, sodium 137, potassium 3.6, creatinine 0.67, T bili 0.7, AST 57, ALT 59, alk phos 73, lactic acid 0.7. Urinalysis with trace blood and ketones, patient states that she has not eaten or drank very much due to her nausea and is on the tail end of her menstrual cycle, which would explain the blood. CT of the abdomen and pelvis shows no findings consistent with acute appendicitis. There was a mildly distended gallbladder on CT, however initial abdominal exam did not have any tenderness in the right upper quadrant. Repeat abdominal exam continues to have no right upper quadrant tenderness, and right lower quadrant tenderness has resolved. Patient's nausea improved with Zofran and she reports feeling improved after IV fluids. Lab and imaging findings discussed with the patient and spouse at bedside. Recommended follow up for her liver enzymes, however with normal white blood cell count, no right upper quadrant tenderness, and no other findings consistent with acute cholecystitis I have low suspicion for this at this time. Nausea medications sent to pharmacy of choice. Discharge Plan Departure Patient Disposition: Home Clinical Impression: Abdominal pain Qualifiers: Abdominal location: right lower quadrant Qualified Code(s): R10.31 - Right lower quadrant pain Instructions: DI for Abdominal Pain-Adult Activity Restrictions/Additional Instructions: Your CT scan did not show any evidence of appendicitis or other abnormalities in your lower abdomen. Your blood work did not show any signs of inflammation or infection. Incidentally your liver enzymes are barely outside of the range of normal. I do not know if this is related to your symptoms, but you have no tenderness in the area of your liver or gallbladder and this is likely an incidental finding. Nausea medications have been sent to your pharmacy. Follow a light diet for the next several days. You may take simethicone or [id number] Gas-X for gas pain relief. Follow up with your primary care doctor. If your pain returns, worsens in any way, or you are unable to keep foods or liquids down by mouth please return to the emergency department for repeat evaluation. Prescriptions: New ondansetron 4 mg tablet,disintegrating 4 mg PO Q8H PRN (Reason: nausea and vomiting) Qty: 30 0RF No Action PNV #[id number] acid-omega3 1 tab PO DAILY cranberry 1 tab PO DAILY Referrals: Miladis aBilon MD [Primary Care Provider] - Stand Alone Forms: Patient Portal/API
[2024-01-14 20:47] LABS: Bacteria Urine Few (2-10); Culture Indicated Urine Cult Not Indicated; RBC Urine 0-1/HPF (0-5/HPF); Squamous Epithelial Cell Urine 1-5 /HPF (0-5/HPF); Urine Volume 10mL (spun); WBC Urine 0-1/HPF (0-5/HPF)
[2024-01-14 20:50] LABS: Lactate (Lactic Acid) 0.7 mmol/L (0.7-2.1)
[2024-01-14 20:51] LABS: Alanine Aminotransferase 59 IU/L (<35); Albumin 4.7 g/dL (3.5-5.0); Albumin Globulin Ratio 1.5 (1.0-2.8); Alkaline Phosphatase 73 U/L (38-126); Aspartate Aminotransferase 57 IU/L (14-36); BUN Creatinine Ratio 11.9 (6-22); Bilirubin Total 0.7 mg/dL (0.2-1.3); Blood Urea Nitrogen 8 mg/dL (7-17); Calcium 9.1 mg/dL (8.4-10.2); Carbon Dioxide 29 mmol/L (22-32); Chloride 100 mmol/L (98-107); Estimated Glomerular Filt Rate > 60 mL/min (>60); Globulin 3.1 g/dL (1.7-4.1); Glucose 99 mg/dL (70-100); HEMOLYSIS < 15 (0-50); Potassium 3.6 mmol/L (3.4-5.1); Sodium 137 mmol/L (137-145); Total Protein 7.8 g/dL (6.3-8.2)
[2024-01-14] MEDS: ONDANSETRON 4 MG/2 ML INJ IV (20:52)
[2024-01-14] MEDS: SODIUM CHLORIDE 0.9% 1,000 ML 1000 ML IV (20:52)
== END 2024-01-14 23:04 | disposition home or self-care (01) ==
PROVIDERS: Emergency Provider Emergency Medicine; Family Provider Specialist; PCP Family Medicine
DX: R10.31 Right lower quadrant pain (principal); R11.0 Nausea
CPT/HCPCS: 36415; 74177; 80053; 81003; 81015; 81025; 83605; 85025; 96361; 96374; 99284; J2405; Q9967